=== PATIENT | male | born 1970 | race Hispanic/Latino ===

== ENCOUNTER 2023-04-13 17:44 | Emergency (ER) | payer BC, OTHER ==
[~2023-04-13] VITALS: Ht 175.3 cm; Wt 97.1 kg
[2023-04-13] MEDS: ONDANSETRON 4MG INJ IVP ONE (18:16)
[2023-04-13] MEDS: MORPHINE 8MG VIAL IVP ONE (18:18)
[2023-04-13] MEDS: MORPHINE 4 MG SYG ONE (18:33)
[2023-04-13] MEDS: LACTATED RINGERS 1000ML IV SCH (18:35)
[2023-04-13] MEDS ORDERED: IOHEXOL 350 MG/ML 100ML INFUS..BTL IV ONE (18:59)
[2023-04-13] MEDS: KETAMINE 50MG/ML SYRINGE 50 MG/ML DISP.SYRIN IV ONE (19:37)
[2023-04-13] MEDS ORDERED: CYCL-309 PO (21:21)
[2023-04-13] MEDS ORDERED: IBUP-1493 PO (21:21)
[2023-04-13] MEDS: KETOROLAC 30MG VIAL (30MG/ML) IVP ONE (21:32)
[2023-04-13 21:35] LABS: ADD UA MICROSCOPIC YES; APPEARANCE,URINE CLEAR (CLEAR); BILIRUBIN,URINE NEGATIVE (NEGATIVE); COLOR,URINE LIGHT-YELLOW (YELLOW); GLUCOSE, URINE (UA) NEGATIVE (NEGATIVE); KETONES,URINE 5 mg/dL (NEGATIVE); LEUKOCYTE ESTERASE ,URINE NEGATIVE Leu/uL (NEGATIVE); NITRATE,URINE NEGATIVE (NEGATIVE); OCCULT BLOOD,URINE NEGATIVE (NEGATIVE); PROTEIN,URINE NEGATIVE (NEGATIVE); UROBILINOGEN,URINE 0.2 mg/dL (0.2-1.0)
[2023-04-13 21:36] LABS: MUCUS,URINE RARE LPF (None Seen); RBC,URINE 0-1 /HPF (0-1); SQUAMOUS EPITHELIAL CELL,UR RARE /HPF (0-2); WBC,URINE 0-1 /HPF (0-1)
[2023-04-13 21:42] LABS: AMPHET/METH SCREEN,URINE NEGATIVE (NEGATIVE); BARBITURATE SCREEN, URINE NEGATIVE (NEGATIVE); BENZODIAZEPINES SCREEN,URINE NEGATIVE (NEGATIVE); CANNABINOID SCREEN,URINE NEGATIVE (NEGATIVE); COCAINE SCREEN,URINE POSITIVE (NEGATIVE); OPIATE SCREEN,URINE POSITIVE (NEGATIVE); PHENCYCLIDINE SCREEN,URINE NEGATIVE (NEGATIVE)
[2023-04-13 22:18] VITALS: BP 136/82; PULSE 79; RESP 18; O2SAT 99
== END 2023-04-13 22:20 | disposition home or self-care (01) ==
LOC: EDH 17:44
DX: S27.321A Contusion of lung, unilateral, initial encounter (principal); F17.200 Nicotine dependence, unspecified, uncomplicated; V89.2XXA Person injured in unspecified motor-vehicle accident, traffic, initial encounter; Y93.55 Activity, bike riding; Y92.89 Other specified places as the place of occurrence of the external cause; Y99.8 Other external cause status
CPT/HCPCS: 99285; 70450; 96374; 96361; 96375; 71045; 80305; 81001; 36415; 73610; 73562; 72125; 71260; 74177; 93005; J7120; J2270 ×2; J2405; J1885; J3490; Q9967

== ENCOUNTER 2023-06-20 16:57 | Emergency (ER) | payer BC, OTHER ==
[~2023-06-20] VITALS: Ht 167.6 cm; Wt 86.2 kg
[~2023-06-20 16:57] MED LIST: CYCL-309 PO; IBUP-1493 PO
[2023-06-20 18:12] LABS: BASOPHILS # (AUTO) 0.02 K/uL (0.00-0.20); BASOPHILS % (AUTO) 0.3 % (0.0-5.0); IMMATURE GRANULOCYTE ABSOLUTE 0.02 K/uL (0-1); LYMPHOCYTES % (AUTO) 14.3 % (21.0-51.0); MEAN CORPUSCULAR HEMOGLOBIN 29.7 pg (27.0-33.0); MEAN CORPUSCULAR HGB CONC 35.6 g/dL (32.0-36.0); MEAN CORPUSCULAR VOLUME 83.5 fL (79-99); MONOCYTES # (AUTO) 0.6 K/uL (0.1-1.0); MONOCYTES % (AUTO) 8.9 % (3.0-13.0); NEUTROPHILS # (AUTO) 5.3 K/uL (1.8-7.7); NEUTROPHILS % (AUTO) 76.2 % (40.0-77.0); PLATELET COUNT (AUTO) 188 K/uL (130-400); RED BLOOD CELL COUNT(AUTO) 5.15 MIL/uL (4.50-6.20); RED CELL DISTRIBUTION WIDTH 11.9 % (11.0-15.5)
[2023-06-20 18:18] LABS: APPEARANCE,URINE CLEAR (CLEAR); BILIRUBIN,URINE NEGATIVE (NEGATIVE); COLOR,URINE LIGHT-YELLOW (YELLOW); GLUCOSE, URINE (UA) NEGATIVE (NEGATIVE); KETONES,URINE 20 mg/dL (NEGATIVE); LEUKOCYTE ESTERASE ,URINE NEGATIVE Leu/uL (NEGATIVE); NITRATE,URINE NEGATIVE (NEGATIVE); OCCULT BLOOD,URINE SMALL (NEGATIVE); PROTEIN,URINE 20 mg/dL (NEGATIVE); UROBILINOGEN,URINE 0.2 mg/dL (0.2-1.0)
[2023-06-20 18:26] LABS: INR 1.02 (0.85-1.15)
[2023-06-20 18:27] LABS: PARTIAL THROMBOPLASTIN TIME 32.8 SEC (26.3-35.5)
[2023-06-20 18:29] LABS: POTASSIUM 3.6 mmol/L (3.5-5.1)
[2023-06-20 18:39] LABS: ALBUMIN 2.8 g/dL (3.5-5.0); BILIRUBIN,TOTAL 0.4 mg/dL (0.2-1.0); TOTAL PROTEIN, SERUM 7.7 g/dL (6.0-8.3)
[2023-06-20 18:43] LABS: ADD UA MICROSCOPIC YES
[2023-06-20] MEDS: CEFTRIAXONE 2GM VIAL IVPB ONE (18:49)
[2023-06-20] MEDS: 0.9%NACL 1000ML 1,914 ML IV ONE (18:50)
[2023-06-20 19:24] LABS: BACTERIA,URINE RARE /HPF (None Seen); MUCUS,URINE RARE LPF (None Seen); SQUAMOUS EPITHELIAL CELL,UR RARE /HPF (0-2); WBC,URINE 0-1 /HPF (0-1); YEAST,URINE BUDDING FEW /HPF (None Seen)
[2023-06-20] MEDS ORDERED: IOHEXOL-350 75 ML VIAL IV ONE (20:53)
[2023-06-20] MEDS: METRONIDAZOLE 500MG/100ML BAG 100 ML IVPB SCH (21:04)
[2023-06-20] MEDS ORDERED: CIPR-278 PO (21:52)
[2023-06-20] MEDS ORDERED: DIPH1TAB PO (21:52)
[2023-06-20 23:21] VITALS: BP 132/88; PULSE 92; RESP 16; O2SAT 98
== END 2023-06-20 23:27 | disposition home or self-care (01) ==
LOC: EDH 16:57
DX: E11.649 Type 2 diabetes mellitus with hypoglycemia without coma (principal); R19.7 Diarrhea, unspecified; F17.200 Nicotine dependence, unspecified, uncomplicated; I10 Essential (primary) hypertension; Z79.1 Long term (current) use of non-steroidal anti-inflammatories (NSAID)
CPT/HCPCS: 99285; 74177; 96365; 96367; 96366; 82550; 84484; 80053; 85025; 85610; 85730; 87040 ×2; 87088; 82948 ×3; 83605; 81001; 36415; J7030; J0696; J3490; Q9967